=== PATIENT | male | born 1970 | race African-American/Black ===

== ENCOUNTER 2020-08-22 18:09 | Emergency (ER) | payer SELFPAY ==
[~2020-08-22] VITALS: Ht 177.8 cm; Wt 90.7 kg
[2020-08-22] MEDS ORDERED: IBUPROFEN 400 MG TAB PO ONE (18:30)
== END 2020-08-22 20:26 | disposition home or self-care (01) ==
LOC: ER 18:14
DX: M25.561 Pain in right knee (principal)
CPT/HCPCS: 99283